=== PATIENT | male | born 1990 | race Caucasian/White ===

== ENCOUNTER → 2018-04-16 | Outpatient (CLI) | payer OTHER | LOC: M OUTALCOH 09:35 | DX: Z13.9 Encounter for screening, unspecified (principal); F10.10 Alcohol abuse, uncomplicated ==

== ENCOUNTER 2018-04-26 13:38 | Outpatient (RCR) | payer OTHER | END 2018-04-27 | LOC: M OUTALCOH 13:38 | DX: F10.20 Alcohol dependence, uncomplicated (principal) ==

== ENCOUNTER 2018-04-30 16:00 | Outpatient (RCR) | payer OTHER | END 2018-05-28 | LOC: M OUTALCOH 16:00 | DX: F10.20 Alcohol dependence, uncomplicated (principal) ==

== ENCOUNTER 2018-07-08 09:30 | Outpatient (RCR) | payer OTHER | END 2018-07-28 | LOC: M OUTALCOH 07-10 10:44 | DX: F10.20 Alcohol dependence, uncomplicated (principal) ==

== ENCOUNTER 2018-07-29 14:56 | Outpatient (RCR) | payer OTHER | END 2018-08-28 | LOC: M OUTALCOH 14:56 | DX: F10.20 Alcohol dependence, uncomplicated (principal) ==

== ENCOUNTER 2021-07-30 17:39 | Emergency (ER) | payer BC, OTHER ==
[~2021-07-30] VITALS: Ht 180.3 cm; Wt 84.0 kg
[2021-07-30 17:40] VITALS: BP 112/67
[2021-07-30] MEDS ORDERED: ALEV220T22 PO (17:48)
--- NOTE | 2021-07-30 19:32 | REP ---
INDICATION: left sided testicular pain. COMPARISON: None. TECHNIQUE: High-resolution bilateral scrotal sonography. FINDINGS: Testicular parenchyma is homogeneous sonographically. No intratesticular mass lesion is seen. Right testis measures 5.2 x 2.2 x 2.5 cm. Left testicular dimensions are 4.7 x 2.2 x 2.7 cm. No abnormality is seen in either epididymis. There is no evidence of hydrocele, hernia, or varicocele. Doppler flow is preserved to both testes. Resistive indices are 0.52 on the right and 0.43 on the left. IMPRESSION: Normal bilateral scrotal sonography. <Electronically signed by Raheem Schreiber > 07/30/[id number]
[2021-07-30] MEDS ORDERED: cefTRIAXone 500MG VIAL (J0696 PER 250MG) IM ONE (19:55)
[2021-07-30] MEDS ORDERED: AZITHROMYCIN 250MG TABLET PO ONE (19:55)
[2021-07-30] MEDS ORDERED: LIDOCAINE 1% SDV 5ML VIAL DILUENT ONE (19:55)
[2021-07-30] MEDS ORDERED: IBUPROFEN 800 MG TAB PO ONE (20:00)
[2021-07-30] MEDS ORDERED: IBUP80TA PO (20:05)
== END 2021-07-30 20:53 | disposition home or self-care (01) ==
LOC: M ED 17:39
DX: N45.3 Epididymo-orchitis (principal); U07.1 COVID-19
CPT/HCPCS: 76870; 93976; 96372; 99282; J0696

== ENCOUNTER → 2022-12-20 | Outpatient (CLI) | payer BC, OTHER ==
[~2022-12-20] MED LIST: ALEV220T22 PO; IBUP80TA PO
[2022-12-20 12:28] LABS: BASO # 0.1 10^3/uL (0.0-0.2); BASO % 1.2 % (0.0-1.0); EOS # 0.2 10^3/uL (0.0-0.5); EOS % 3.1 % (0.0-3.0); HEMATOCRIT 43.6 % (42.0-52.0); HEMOGLOBIN 14.2 g/dl (13.5-17.5); LYMPH # 1.5 10^3/uL (1.5-5.0); LYMPH % 29.6 % (24.0-44.0); MEAN CORPUSCULAR HEMOGLOBIN 28.7 pg (27.0-33.0); MEAN CORPUSCULAR HGB CONC 32.6 g/dl (32.0-36.5); MEAN CORPUSCULAR VOLUME 88.3 fl (80.0-96.0); MONO # 0.4 10^3/uL (0.0-0.8); MONO % 7.6 % (2.0-8.0); NEUTROPHILS # 2.9 10^3/uL (1.5-8.5); NEUTROPHILS % 57.1 % (36.0-66.0); PLATELET COUNT, AUTOMATED 333 10^3/uL (150-450); RED BLOOD COUNT 4.94 10^6/uL (4.30-6.10); WHITE BLOOD COUNT 5.1 10^3/uL (4.0-10.0)
[2022-12-20 13:14] LABS: ERYTHROCYTE SEDIMENTATION RATE 35 mm/hr (0-15)
[2022-12-20 13:21] LABS: ALBUMIN 3.9 G/DL (3.2-5.2); ALKALINE PHOSPHATASE 97 U/L (46-116); ALT/SGPT 37 U/L (7.0-40); AST/SGOT 25 U/L (<34); BILIRUBIN,TOTAL 0.7 MG/DL (0.3-1.2); BLOOD UREA NITROGEN 16 MG/DL (9-23); CALCIUM LEVEL 9.3 MG/DL (8.5-10.1); CARBON DIOXIDE LEVEL 29 MMOL/L (20-31); CHLORIDE LEVEL 103 MMOL/L (98-107); CREATININE FOR GFR 0.82 MG/DL (0.70-1.30); GLOMERULAR FILTRATION RATE > 60.0 (>60); GLUCOSE, FASTING 83 MG/DL (60-100); POTASSIUM SERUM 4.5 MMOL/L (3.5-5.1); SODIUM LEVEL 139 MMOL/L (136-145)
[2022-12-20 18:34] LABS: TOTAL PROTEIN 7.2 G/DL (5.7-8.2)
== END ==
LOC: M WUC 09:24
DX: K51.019 Ulcerative (chronic) pancolitis with unspecified complications (principal)

== ENCOUNTER → 2022-12-22 | Outpatient (REF) | payer OTHER | LOC: M LAB REF 16:25 | PROVIDERS: ATTEND Internal Medicine Gastroenterology | DX: K51.019 Ulcerative (chronic) pancolitis with unspecified complications (principal) ==

== ENCOUNTER → 2022-12-26 | Outpatient (REF) | payer OTHER ==
[2022-12-26 13:24] LABS: PERCENT SATURATION 20.2 % (19.7-50.0)
[2022-12-26 13:25] LABS: FREE T4 1.02 NG/DL (0.89-1.76)
[2022-12-26 13:26] LABS: FERRITIN 105.3 NG/ML (10.5-307.3); THYROID STIMULATING HORMONE 1.253 uIU/ML (0.55-4.78)
== END ==
LOC: M SFHCADAM 09:49
PROVIDERS: ATTEND Family Medicine
DX: K51.90 Ulcerative colitis, unspecified, without complications (principal); K62.5 Hemorrhage of anus and rectum; E04.1 Nontoxic single thyroid nodule

== ENCOUNTER → 2023-01-11 | Outpatient (CLI) | payer BC, OTHER | LOC: M WHC 14:56 | PROVIDERS: ATTEND Family Medicine | DX: E04.1 Nontoxic single thyroid nodule (principal) ==

== ENCOUNTER → 2023-10-17 | Outpatient (CLI) | payer OTHER | LOC: M OUTALCOH 08:05 | PROVIDERS: ATTEND Psychiatry & Neurology Psychiatry | DX: F10.10 Alcohol abuse, uncomplicated (principal) ==

== ENCOUNTER → 2023-10-24 | Outpatient (REF) | payer OTHER ==
[2023-10-24 15:14] LABS: ALBUMIN 4.3 G/DL (3.2-5.2); ALKALINE PHOSPHATASE 64 U/L (46-116); ALT/SGPT 38 U/L (7.0-40); AST/SGOT 16 U/L (<34); BILIRUBIN,TOTAL 1.3 MG/DL (0.3-1.2); BLOOD UREA NITROGEN 19 MG/DL (9-23); CALCIUM LEVEL 9.2 MG/DL (8.5-10.1); CARBON DIOXIDE LEVEL 30 MMOL/L (20-31); CHLORIDE LEVEL 103 MMOL/L (98-107); CREATININE FOR GFR 0.79 MG/DL (0.70-1.30); GLOMERULAR FILTRATION RATE > 60.0 (>60); GLUCOSE, FASTING 75 MG/DL (60-100); POTASSIUM SERUM 4.4 MMOL/L (3.5-5.1); SODIUM LEVEL 139 MMOL/L (136-145); TOTAL PROTEIN 7.2 G/DL (5.7-8.2)
== END ==
LOC: M SFHCADAM 11:07
PROVIDERS: ATTEND Family Medicine
DX: F10.11 Alcohol abuse, in remission (principal)

== ENCOUNTER 2023-10-26 09:05 | Outpatient (RCR) | payer OTHER | END 2023-10-28 | LOC: M OUTALCOH 09:05 | PROVIDERS: ATTEND Psychiatry & Neurology Psychiatry | DX: F10.20 Alcohol dependence, uncomplicated (principal) ==

== ENCOUNTER 2023-11-22 14:44 | Outpatient (RCR) | payer OTHER | END 2023-11-28 | LOC: M OUTALCOH 14:44 | PROVIDERS: ATTEND Psychiatry & Neurology Psychiatry | DX: F10.20 Alcohol dependence, uncomplicated (principal) ==

== ENCOUNTER 2023-12-26 09:50 | Outpatient (RCR) | payer OTHER | END 2023-12-27 | LOC: M OUTALCOH 09:50 | PROVIDERS: ATTEND Psychiatry & Neurology Psychiatry | DX: F10.20 Alcohol dependence, uncomplicated (principal) ==

== ENCOUNTER 2024-01-01 15:58 | Outpatient (RCR) | payer OTHER | END 2024-01-27 | LOC: M OUTALCOH 15:58 | PROVIDERS: ATTEND Psychiatry & Neurology Psychiatry | DX: F10.20 Alcohol dependence, uncomplicated (principal) ==

== ENCOUNTER → 2024-01-11 | Outpatient (REF) | payer OTHER, BC ==
[2024-01-11 13:59] LABS: C REACTIVE PROTEIN QUANTITATIV < 0.40 MG/DL (<1.0)
[2024-01-11 14:01] LABS: ALBUMIN 3.9 G/DL (3.2-5.2); ALKALINE PHOSPHATASE 54 U/L (46-116); ALT/SGPT 34 U/L (7.0-40); AST/SGOT 18 U/L (<34); BILIRUBIN,TOTAL 0.8 MG/DL (0.3-1.2); BLOOD UREA NITROGEN 21 MG/DL (9-23); CALCIUM LEVEL 8.6 MG/DL (8.5-10.1); CARBON DIOXIDE LEVEL 29 MMOL/L (20-31); CHLORIDE LEVEL 105 MMOL/L (98-107); CREATININE FOR GFR 0.85 MG/DL (0.70-1.30); GLOMERULAR FILTRATION RATE > 60.0 (>60); GLUCOSE, FASTING 78 MG/DL (60-100); SODIUM LEVEL 137 MMOL/L (136-145); TOTAL PROTEIN 6.7 G/DL (5.7-8.2)
[2024-01-11 14:02] LABS: BASO # 0.1 10^3/uL (0.0-0.2); BASO % 0.7 % (0.0-1.0); EOS # 0.2 10^3/uL (0.0-0.5); EOS % 2.2 % (0.0-3.0); HEMOGLOBIN 14.5 g/dl (13.5-17.5); LYMPH # 2.9 10^3/uL (1.5-5.0); LYMPH % 42.6 % (24.0-44.0); MEAN CORPUSCULAR HEMOGLOBIN 29.3 pg (27.0-33.0); MEAN CORPUSCULAR HGB CONC 33.7 g/dl (32.0-36.5); MEAN CORPUSCULAR VOLUME 86.9 fl (80.0-96.0); MONO # 0.6 10^3/uL (0.0-0.8); MONO % 8.2 % (2.0-8.0); NEUTROPHILS # 3.1 10^3/uL (1.5-8.5); PLATELET COUNT, AUTOMATED 270 10^3/uL (150-450); RED BLOOD COUNT 4.95 10^6/uL (4.30-6.10); WHITE BLOOD COUNT 6.8 10^3/uL (4.0-10.0)
[2024-01-11 14:15] LABS: ERYTHROCYTE SEDIMENTATION RATE 19 mm/hr (0-15)
== END ==
LOC: M LABDRWAD 12:58
PROVIDERS: ATTEND Internal Medicine Gastroenterology
DX: K51.019 Ulcerative (chronic) pancolitis with unspecified complications (principal)

== ENCOUNTER → 2024-01-18 | Outpatient (REF) | payer OTHER, BC | LOC: M LABDRWAD 17:13 | PROVIDERS: ATTEND Internal Medicine Gastroenterology | DX: K51.019 Ulcerative (chronic) pancolitis with unspecified complications (principal) ==

== ENCOUNTER → 2024-08-22 | Outpatient (CLI) | payer OTHER | LOC: M OUTALCOH 08:58 | PROVIDERS: ATTEND Psychiatry & Neurology Psychiatry | DX: F10.20 Alcohol dependence, uncomplicated (principal) ==

== ENCOUNTER → 2024-11-21 | Outpatient (CLI) | payer OTHER, BC ==
[2024-11-21 13:44] LABS: CHOLESTEROL RISK RATIO 3.62 (<5); HDL CHOLESTEROL 48.6 MG/DL (>40); LDL CHOLESTEROL 97.4 MG/DL (<100); NON-HDL-C 127.4 MG/DL
[2024-11-21 13:47] LABS: FREE T4 1.22 NG/DL (0.89-1.76)
[2024-11-21 13:48] LABS: THYROID STIMULATING HORMONE 1.4 uIU/ML (0.55-4.78)
== END ==
LOC: M WUC 09:06
PROVIDERS: ATTEND Family Medicine
DX: E04.1 Nontoxic single thyroid nodule (principal); Z83.438 Family history of other disorder of lipoprotein metabolism and other lipidemia

== ENCOUNTER → 2025-09-03 | Outpatient (REF) | payer BC | LOC: M LAB REF 16:45 | PROVIDERS: ATTEND Internal Medicine | DX: K51.019 Ulcerative (chronic) pancolitis with unspecified complications (principal) ==